=== PATIENT | female | born 1960 | race Caucasian/White ===

== ENCOUNTER 2019-09-25 16:57 | Inpatient (IN) | payer MEDICAID ==
[~2019-09-25] VITALS: Ht 167.6 cm; Wt 120.5 kg
[2019-09-25] MEDS ORDERED: HEPARIN 25,000 UNITS/250ML PMX 250 ML ONE (17:00)
[2019-09-25] MEDS ORDERED: PLEASE ENTER HEIGHT AND WEIGHT MC SCH (17:12)
--- NOTE | 2019-09-25 17:19 | NUR ---
LATE NOTE ENTRY DUE TO PT CARE. TASK RN: Pt arrived to ED by air from [facility] with c/o waking up "tired" and at 11:30 after cleaning a bathroom pt developed left arm pain and tightness, left chest pain nd tightness, and headache. Pt arrives to this ED with heparin drip infusing prior to arrival. Pt received two doses of nitro SL prior to arrival to this ED. Pt resting on gurney connected to NIBP cuff, continous pulse ox monitor, and awake overnight monitor. Second PIV established by staff ED RN. Medications infusing per EDMD order and emar. Call light wtihin reach. Bedrails up for safety x 2.
--- NOTE | 2019-09-25 17:29 | NUR ---
TASK RN: Heparin started per [facility] and [facility] Heparin protocol per EDMR order. Heparin rate changed from 1430 units/hour that was started prior to arrival to this ED, to 900 units/hour per this ED Heparin protocol.
--- NOTE | 2019-09-25 17:30 | NUR ---
Report provided to primary RN. All questions answered. Primary RN Anjelica to assume care at this time.
--- NOTE | 2019-09-25 17:39 | NUR ---
Pt's kids phone numbers: Lilly Alcantara [phone] Brad Goncalves [phone] Adolfo Goncalves [phone]
--- NOTE | 2019-09-25 17:42 | NUR ---
REPORT RECIEVED FROM FLOAT RN. PT RESTING COMFORTABLY IN BED, STATES 2/10 CHEST (HEAVINESS) CURRENTLY. PT REMAINS ON MONITORS, VSS. CALL LIGHT IN REACH. FIORDALIZA FOLLOW ORDERS.
--- NOTE | 2019-09-25 17:44 | NUR ---
Called and spoke to patients daughter Lilly Alcantara listed in notes as patient contact. Answered all questions.
[2019-09-25] MEDS ORDERED: HEPARIN 25,000 UNITS/250ML PMX 250 ML IV PRN (18:00)
[2019-09-25] MEDS ORDERED: HYDR50TA3 PO (18:30)
[2019-09-25] MEDS ORDERED: SODIUM CHLORIDE FLUSH 10ML SYR IVF ONE (18:30)
[2019-09-25] MEDS ORDERED: LEVO25TA2 PO (18:30)
--- NOTE | 2019-09-25 18:30 | NUR ---
Pt resting in bed, aware of plan of care, to be admit. Pt remains on monitors, vss. Call light in reach. Cont to monitor.
--- NOTE | 2019-09-25 18:56 | NUR ---
Report given to Sharri MIN.
[2019-09-25] MEDS ORDERED: morphine SULFATE 10 MG/ML, 1ML IVPush PRN (20:00)
[2019-09-25] MEDS ORDERED: BISACODYL 10 MG SUPP PR PRN (20:00)
[2019-09-25] MEDS ORDERED: DOCUSATE 100 MG CAPSULE PO PRN (20:00)
[2019-09-25] MEDS ORDERED: NITROGLYCERIN 0.4 MG BOTTLE (25 TABS) SL PRN (20:00)
[2019-09-25] MEDS ORDERED: NITROGLYCERIN 0.4 MG/SPRAY SL PRN (20:00)
[2019-09-25] MEDS ORDERED: POLYETHYLENE GLYCOL 17 GM PACKET PO PRN (20:00)
[2019-09-25 20:45] LABS: TROPONIN I 0.881 ng/mL (0.000-0.045)
[2019-09-25 22:41] VITALS: BP 162/82
[2019-09-26] MEDS: HEPARIN 5,000 UNITS/ML, 1ML IV PRN ×2 (00:11→07:09)
[2019-09-26] MEDS: ACETAMINOPHEN 325 MG TABLET PO PRN ×3 (00:12→16:31)
[2019-09-26 01:27] VITALS: BP 148/79
[2019-09-26] MEDS ORDERED: LEVOTHYROXINE 25 MCG TABLET PO SCH (06:00)
[2019-09-26] MEDS ORDERED: LEVOTHYROXINE MC SCH ×2 (06:00→07:00)
[2019-09-26 06:25] LABS: BASOPHILS # (AUTO) 0.05 x10^3/uL (0-0.1); BASOPHILS % (AUTO) 1 % (0-1); EOSINOPHILS # (AUTO) 0.37 x10^3/uL (0-0.4); EOSINOPHILS % (AUTO) 6 % (1-7); LYMPHOCYTES # (AUTO) 2.68 x10^3/uL (1-3.4); LYMPHOCYTES % (AUTO) 42 % (22-44); MD NO; MEAN CORPUSCULAR HEMOGLOBIN 31.3 pg (27.0-34.8); MEAN CORPUSCULAR HGB CONC 33.6 g/dL (32.4-35.8); MEAN CORPUSCULAR VOLUME 93.1 fL (80-100); MEAN PLATELET VOLUME 8.9 fL (7.4-10.4); MONOCYTES # (AUTO) 0.54 x10^3/uL (0.2-0.8); MONOCYTES % (AUTO) 8 % (2-9); NEUTROPHILS # (AUTO) 2.82 x10^3/uL (1.8-6.8); NEUTROPHILS % (AUTO) 44 % (42-75); PLATELET COUNT 275 x10^3/uL (130-400); RED BLOOD COUNT 4.46 x10^6/uL (3.82-5.3); RED CELL DISTRIBUTION WIDTH 14.6 % (9.6-15.2)
[2019-09-26] MEDS ORDERED: LEVOTHYROXINE 25 MCG TABLET ONE (06:31)
[2019-09-26 06:41] LABS: TROPONIN I 0.923 ng/mL (0.000-0.045)
[2019-09-26] MEDS: LEVOTHYROXINE 25 MCG TABLET PO SCH (06:45)
[2019-09-26 06:47] LABS: ALANINE AMINOTRANSFERASE 86 U/L (12-78); ALBUMIN 3.2 g/dL (3.4-5.0); ANION GAP 8 mmol/L (5-15); CALCIUM 8.8 mg/dL (8.5-10.1); CHLORIDE 103 mmol/L (98-107); CREATININE 0.93 mg/dL (0.55-1.02)
[2019-09-26 06:55] LABS: ALKALINE PHOSPHATASE 84 U/L (45-117); BILIRUBIN,TOTAL 0.4 mg/dL (0.2-1.0); FREE T4 (FREE THYROXINE) 0.95 ng/dL (0.76-1.46); TOTAL PROTEIN 6.7 g/dL (6.4-8.2)
[2019-09-26 07:07] VITALS: BP 132/79
[2019-09-26] MEDS: NS + 20MEQ KCL 1,000 ML IV SCH ×2 (09:46→21:35)
[2019-09-26] MEDS: SODIUM CHLORIDE 0.9% 1,000 ML IV SCH ×2 (11:16→19:00)
[2019-09-26] MEDS ORDERED: MIDAZOLAM 1 MG/ML, 5ML ONE (13:10)
[2019-09-26] MEDS ORDERED: FENTANYL PF 100 MCG/2ML ONE ×2 (13:10→13:53)
[2019-09-26] MEDS ORDERED: TICAGRELOR 90 MG TABLET ONE (13:10)
[2019-09-26] MEDS ORDERED: HEPARIN 1,000 UNITS/ML, 10ML ONE (13:11)
[2019-09-26] MEDS ORDERED: LIDOCAINE-MPF 1%, 5ML ONE (13:11)
[2019-09-26] MEDS ORDERED: BIVALIRUDIN 250 MG ONE ×2 (13:11→14:28)
[2019-09-26] MEDS ORDERED: VERAPAMIL 2.5 MG/ML, 2ML ONE (13:11)
[2019-09-26] MEDS ORDERED: MIDAZOLAM 1 MG/ML, 2ML ONE (13:53)
[2019-09-26] MEDS ORDERED: PRASUGREL 10 MG TABLET ONE (14:10)
[2019-09-26] MEDS ORDERED: BIVALIRUDIN 250 MG in SODIUM CHLORIDE 0.9% 50 ML IV SCH (14:26)
[2019-09-26 14:27] VITALS: BP 112/70
[2019-09-26 19:00] VITALS: BP 124/77
[2019-09-26] MEDS ORDERED: ATORVASTATIN 80 MG TABLET PO SCH (21:00)
[2019-09-27 01:03] VITALS: BP 133/82
[2019-09-27 04:42] LABS: BASOPHILS # (AUTO) 0.05 x10^3/uL (0-0.1); BASOPHILS % (AUTO) 1 % (0-1); EOSINOPHILS # (AUTO) 0.42 x10^3/uL (0-0.4); EOSINOPHILS % (AUTO) 6 % (1-7); LYMPHOCYTES # (AUTO) 2.56 x10^3/uL (1-3.4); LYMPHOCYTES % (AUTO) 38 % (22-44); MD NO; MEAN CORPUSCULAR HEMOGLOBIN 31.5 pg (27.0-34.8); MEAN CORPUSCULAR HGB CONC 33.2 g/dL (32.4-35.8); MEAN CORPUSCULAR VOLUME 94.8 fL (80-100); MEAN PLATELET VOLUME 8.9 fL (7.4-10.4); MONOCYTES # (AUTO) 0.51 x10^3/uL (0.2-0.8); MONOCYTES % (AUTO) 8 % (2-9); NEUTROPHILS # (AUTO) 3.13 x10^3/uL (1.8-6.8); NEUTROPHILS % (AUTO) 47 % (42-75); PLATELET COUNT 299 x10^3/uL (130-400); RED BLOOD COUNT 4.71 x10^6/uL (3.82-5.3); RED CELL DISTRIBUTION WIDTH 14.5 % (9.6-15.2)
[2019-09-27 04:47] LABS: ANION GAP 4 mmol/L (5-15); CALCIUM 8.8 mg/dL (8.5-10.1); CHLORIDE 111 mmol/L (98-107)
[2019-09-27 04:52] LABS: CREATININE 0.84 mg/dL (0.55-1.02)
[2019-09-27] MEDS: SODIUM CHLORIDE 0.9% 1,000 ML IV SCH (05:40)
[2019-09-27] MEDS: LEVOTHYROXINE 25 MCG TABLET PO SCH (05:40)
[2019-09-27 06:58] VITALS: BP 119/77
[2019-09-27] MEDS ORDERED: ASPI81TA45 PO (08:42)
[2019-09-27] MEDS ORDERED: ATOR-2 PO (08:42)
[2019-09-27] MEDS ORDERED: PRAS10TA4 PO (08:42)
[2019-09-27] MEDS ORDERED: CARV3.12 PO (08:49)
[2019-09-27] MEDS ORDERED: PRASUGREL 10 MG TABLET PO SCH (09:00)
[2019-09-27] MEDS ORDERED: ASPIRIN 81 MG TABLET EC PO SCH (09:30)
[2019-09-27] MEDS: NS + 20MEQ KCL 1,000 ML IV SCH (10:55)
== END 2019-09-27 12:15 | disposition home or self-care (01) | DRG 174 ==
LOC: ED 19:09 → EDIP 19:28 → 5SO 19:53
PROVIDERS: ADMIT Internal Medicine; ATTEND Internal Medicine
PROC: 4A023N7 Measurement of Cardiac Sampling and Pressure, Left Heart, Percutaneous Approach (ICD-10-PCS; principal; 2019-09-26)
PROC: 027034Z Dilation of Coronary Artery, One Artery with Drug-eluting Intraluminal Device, Percutaneous Approach (ICD-10-PCS; 2019-09-26)
PROC: B211YZZ Fluoroscopy of Multiple Coronary Arteries using Other Contrast (ICD-10-PCS; 2019-09-26)
PROC: B215YZZ Fluoroscopy of Left Heart using Other Contrast (ICD-10-PCS; 2019-09-26)
DX: I21.4 Non-ST elevation (NSTEMI) myocardial infarction (principal); E03.9 Hypothyroidism, unspecified; E87.6 Hypokalemia; F17.200 Nicotine dependence, unspecified, uncomplicated; I10 Essential (primary) hypertension; I25.10 Atherosclerotic heart disease of native coronary artery without angina pectoris; Z88.2 Allergy status to sulfonamides; J42 Unspecified chronic bronchitis; M79.7 Fibromyalgia; Z79.82 Long term (current) use of aspirin; Z80.0 Family history of malignant neoplasm of digestive organs; Z90.710 Acquired absence of both cervix and uterus
CPT/HCPCS: 36415; 93458; 96365; 96366; 99285; C9600; 80048; 80053; 83735; 84100; 84439; 84443; 84484; 85025; 85379; 85520; 93005; 99156; 99157; C1769; C1894; G0378; J0583; J1644; J2250; J3010; J3480; C1725; C1874; C1887; J7030; Q9967

== ENCOUNTER 2019-10-18 06:12 | Observation (INO) | payer MEDICAID ==
[~2019-10-18] VITALS: Ht 167.6 cm; Wt 115.9 kg
[~2019-10-18 06:12] MED LIST: ASPI81TA45 PO; ATOR-2 PO; CARV3.12 PO; HYDR50TA3 PO; LEVO25TA2 PO; PRAS10TA4 PO
[2019-10-18] MEDS ORDERED: MORPHINE SULFATE 4 MG/ML, 1ML IVPush PRN (06:30)
[2019-10-18] MEDS ORDERED: SODIUM CHLORIDE FLUSH 10ML SYR IVF ONE (06:30)
[2019-10-18] MEDS ORDERED: MORPHINE SULFATE 4 MG/ML, 1ML ONE (06:35)
--- NOTE | 2019-10-18 06:41 | NUR ---
PT BIB BY BABAR FROM [facility] FOR CHEST PAIN. PT HAD STENT PLACED ON 09/24. PT GIVEN 324 ASA, 4 MG MS, 4 MG ZOFRAN, SUB LINGUAL NITRO AND NITRO PATCH PLACED. PT NOW 07/22. PT MADICATED FOR PAIN. VSS. LAB AT BEDSIDE. CALL LIGHT IN REACH
[2019-10-18 06:59] LABS: TROPONIN I < 0.015 ng/mL (0.000-0.045)
--- NOTE | 2019-10-18 07:28 | NUR ---
REPORT FROM FREDY MARTINEZ AMUBLATED TO BATHROOM W [employer]Y GATE. PT VSS, [facility] AT BEDSIDE
[2019-10-18] MEDS ORDERED: ONDANSETRON 2MG/ML, 2ML IVPush PRN (08:00)
[2019-10-18] MEDS ORDERED: hydrALAzine 20 MG/ML, 1ML IVPush PRN (08:00)
[2019-10-18] MEDS ORDERED: LABETALOL 5MG/ML, 20ML IVPush PRN (08:00)
[2019-10-18] MEDS ORDERED: morphine SULFATE 10 MG/ML, 1ML IVPush PRN (08:00)
[2019-10-18 08:40] LABS: TROPONIN I < 0.015 ng/mL (0.000-0.045)
--- NOTE | 2019-10-18 08:47 | NUR ---
REPORT TO JOSE.
[2019-10-18] MEDS: POTASSIUM CHLORIDE 20 MEQ TAB.ER.PRT PO SCH ×2 (10:14→17:14)
[2019-10-18] MEDS: HYDROCHLOROTHIAZIDE 25 MG TABLET PO SCH (10:15)
[2019-10-18] MEDS: CARVEDILOL 3.125 MG TABLET PO SCH ×2 (10:15→21:05)
[2019-10-18] MEDS: PRASUGREL 10 MG TABLET PO SCH (10:15)
[2019-10-18] MEDS: ASPIRIN 81 MG TABLET EC PO SCH (10:15)
[2019-10-18] MEDS: HEPARIN 5,000 UNITS/ML, 1ML SQ SCH ×2 (10:16→17:15)
[2019-10-18] MEDS: LEVOTHYROXINE 50 MCG TABLET PO SCH (10:55)
[2019-10-18 12:47] VITALS: BP 122/77
[2019-10-18 13:48] LABS: TROPONIN I < 0.015 ng/mL (0.000-0.045)
[2019-10-18 19:44] LABS: TROPONIN I < 0.015 ng/mL (0.000-0.045)
[2019-10-18 19:55] VITALS: BP 125/74
[2019-10-18] MEDS ORDERED: ATORVASTATIN 80 MG TABLET PO SCH (21:00)
[2019-10-19 01:38] VITALS: BP 119/51
[2019-10-19] MEDS: HEPARIN 5,000 UNITS/ML, 1ML SQ SCH ×2 (02:51→09:31)
[2019-10-19 04:58] LABS: BASOPHILS # (AUTO) 0.05 x10^3/uL (0-0.1); BASOPHILS % (AUTO) 1 % (0-1); EOSINOPHILS # (AUTO) 0.48 x10^3/uL (0-0.4); EOSINOPHILS % (AUTO) 8 % (1-7); LYMPHOCYTES # (AUTO) 2.52 x10^3/uL (1-3.4); LYMPHOCYTES % (AUTO) 42 % (22-44); MD NO; MEAN CORPUSCULAR HGB CONC 33.3 g/dL (32.4-35.8); MEAN CORPUSCULAR VOLUME 93.3 fL (80-100); MEAN PLATELET VOLUME 9.1 fL (7.4-10.4); MONOCYTES # (AUTO) 0.43 x10^3/uL (0.2-0.8); MONOCYTES % (AUTO) 7 % (2-9); NEUTROPHILS # (AUTO) 2.59 x10^3/uL (1.8-6.8); NEUTROPHILS % (AUTO) 43 % (42-75); PLATELET COUNT 257 x10^3/uL (130-400); RED BLOOD COUNT 4.26 x10^6/uL (3.82-5.3); RED CELL DISTRIBUTION WIDTH 14.1 % (9.6-15.2)
[2019-10-19 05:11] LABS: ALBUMIN 3.1 g/dL (3.4-5.0); ANION GAP 6 mmol/L (5-15); CALCIUM 8.5 mg/dL (8.5-10.1); CHLORIDE 107 mmol/L (98-107)
[2019-10-19 05:22] LABS: ALANINE AMINOTRANSFERASE 82 U/L (12-78); ALKALINE PHOSPHATASE 101 U/L (45-117); BILIRUBIN,TOTAL 0.5 mg/dL (0.2-1.0); CHOL/HDL RATIO 2.6; CHOLESTEROL, TOTAL 143 mg/dL (140-239); CREATININE 0.83 mg/dL (0.55-1.02); HDL CHOL % 38 % (28-40); HDL CHOLESTEROL (DIRECT) 55 mg/dL (40-60); LDL CHOLESTEROL,CALCULATED 72 mg/dL (54-169); LDL/HDL RATIO 1.3 (0.5-3.0); TOTAL PROTEIN 6.5 g/dL (6.4-8.2); TRIGLYCERIDES 79 mg/dL (50-200); VLDL CHOLESTEROL 16 mg/dL (0-25)
[2019-10-19] MEDS: LEVOTHYROXINE 50 MCG TABLET PO SCH (05:57)
[2019-10-19 07:39] VITALS: BP 122/81
[2019-10-19] MEDS: PRASUGREL 10 MG TABLET PO SCH (09:41)
[2019-10-19] MEDS: POTASSIUM CHLORIDE 20 MEQ TAB.ER.PRT PO SCH (09:41)
[2019-10-19] MEDS: HYDROCHLOROTHIAZIDE 25 MG TABLET PO SCH (09:41)
[2019-10-19] MEDS: CARVEDILOL 3.125 MG TABLET PO SCH (09:41)
[2019-10-19] MEDS: ASPIRIN 81 MG TABLET EC PO SCH (09:41)
== END 2019-10-19 12:59 | disposition home or self-care (01) ==
LOC: ED 06:27 → INTOOBSV 06:50 → EDIP 06:50 → 5SO 09:18
PROVIDERS: ADMIT Internal Medicine; ATTEND Internal Medicine
DX: R07.89 Other chest pain (principal); I10 Essential (primary) hypertension; I25.10 Atherosclerotic heart disease of native coronary artery without angina pectoris; E66.01 Morbid (severe) obesity due to excess calories; E03.9 Hypothyroidism, unspecified; F41.9 Anxiety disorder, unspecified; F32.9 Major depressive disorder, single episode, unspecified; Z79.82 Long term (current) use of aspirin; M79.7 Fibromyalgia; Z95.5 Presence of coronary angioplasty implant and graft; Z87.891 Personal history of nicotine dependence
CPT/HCPCS: 36415; 80053; 80061; 84443; 84484; 85025; 93005; 93306; 94660; 96372; 96374; 99284; G0378; J1644; J2270